=== PATIENT | male | born 2000 | race Caucasian/White ===

== ENCOUNTER → 2021-01-30 15:10 | Outpatient (CLI) | payer OTHER, SELFPAY ==
--- NOTE | ~2021-01-30 | MR_ITS ---
EXAMINATION: MR brain/brain stem wo/w con DATE: 01/30/2021 16:14 INDICATION: Sudden bilateral hearing loss. TECHNIQUE: Magnetic resonance imaging (MRI) of the brain and brainstem was performed without and with 13 mL MultiHance intravenous contrast. Sequences included sagittal and axial T1-weighted FSE, axial diffusion-weighted FS EPI, axial T2*-weighted GRE, axial T2-weighted FLAIR Propeller, and axial T2-we ighted Propeller. Postcontrast sequences included axial and coronal T1-weighted FSE. Apparent diffusi on coefficient (ADC) maps were created. COMPARISON: None. FINDINGS: There is no intracranial hemorrhage or acute infarction. There is a small area of leptomeni ngeal contrast enhancement in the right frontoparietal region. The ventricles are normal in size. The internal auditory canals and inner and middle ears are normal. The mastoid air cells are normal. Th ere is mild mucosal thickening in the ethmoid and left maxillary sinuses. The left maxillary sinus is smaller than the right. The orbits are normal. IMPRESSION: 1. Small area of leptomeningeal contrast enhancement in the right frontoparietal region. This finding may be seen with meningitis, subacute cortical infarct, and less likely metastatic disease, vasculit is, or Sturge-Reed syndrome. Reviewed, dictated and finalized at location A. [facility] IMPRESSION: 1. Small area of leptomeningeal contrast enhancement in the right frontoparieta l region. This finding may be seen with meningitis, subacute cortical infarct, and less likely metastatic disease, vasculitis, or Sturge-Reed syndrome.
[2021-01-30 15:56] LABS: Estimated Glomerular Filt Rate > 60
== END ==
DX: H91.23 Sudden idiopathic hearing loss, bilateral (principal)
CPT/HCPCS: 70553; A9577

== ENCOUNTER 2024-09-19 01:15 | Emergency (ER) | payer OTHER, SELFPAY ==
[2024-09-19 01:12] VITALS: BP 157/129; PULSE 115; RESP 16; TEMP 36.4; O2SAT 100
[2024-09-19 01:26] LABS: Hematocrit 45.4 % (42.0-52.0); Hemoglobin 16.3 g/dL (14.0-18.0); Immature Granulocyte Percent A 0.2 % (0-0.5); Lymphocytes Absolute Auto 2.37 K/mm3 (0.9-3.2); Mean Corpuscular HGB Conc 35.9 g/dl (32-36); Mean Corpuscular Hemoglobin 29.8 pg (26-34); Mean Corpuscular Volume 83.0 fl (80-100); Nucleated Red Blood Cells Absolute Auto 0.000 K/mm3 (0.0-0.012); Nucleated Red Blood Cells Perc 0.0 % (0.0-0.2); Platelet Count Result 305 k/mm3 (150-375); Red Blood Count 5.47 M/mm3 (4.6-6.20); White Blood Count 10.1 K/mm3 (4.5-10.0)
--- NOTE | 2024-09-19 01:26 | PC.NURSE ---
pt family placed in waiting room - family service area until involutary form is filled out.
[2024-09-19 01:35] LABS: Acetaminophen < 10 ug/mL (10-30); Salicylate < 1.0 mg/dL (2-20)
[2024-09-19 01:38] LABS: Alanine Aminotransferase 23 U/L (6-50); Albumin Level 5.4 g/dL (3.5-5.1); Alkaline Phosphatase 83 U/L (38-126); Anion Gap 24 mmol/L (4-12); Aspartate Amino Transferase 27 U/L (17-59); Bilirubin,Total 0.9 mg/dL (0.2-1.3); Blood Urea Nitrogen 11 mg/dL (9-20); Calcium 10.3 mg/dL (8.4-10.2); Carbon Dioxide 16 mmol/L (22-30); Chloride 100 mmol/L (98-107); Estimated CRCL calculation 105 ml/min; Estimated Glomerular Filt Rate > 60; Glucose 132 mg/dL (65-110); Potassium 3.4 mmol/L (3.4-5.0); Sodium 140 mmol/L (137-145); Total Protein 8.6 g/dL (6.3-8.2)
--- OUTSIDE RECORDS SUMMARY | 2024-09-19 01:50 | XMS_ITS | Clinical Summary ---
Author Organization [facility] Address [address] [place] [address] Care Team Providers Care Manager Medical Affairs Name Role Phone Karina Walsh MD Primary Care Provider [phone] Source Comments [facility] [employer],non-owned Affiliates and Associated Physician Practices is amultiple site organization consisting of ambulatory clinics and hospital sitesin [place], [place], [place] and [place]. This disclosure is being madepursuant to the Care Everywhere program and may not contain all information available regarding this patient. Last updated 17.[facility] Allergies No known active allergies Medications * Be aware that medications may not be up to date on this document. Alwaysverify current medications with the patient. No known medications Active Problems Problem Noted Date Diagnosed Date Closed nondisplaced fracture of distal phalanx of right great toe 05/02/2018 Closed displaced fracture of middle third of navicular bone of left wrist 08/30/2017 Pain associated with accessory navicular bone of foot 06/25/2014 Closed displaced fracture of fifth metatarsal bone of right foot 05/29/2013 Overview (12/20/2015): IMO Updt 12/20/2015 Resolved Problems Problem Noted Date Diagnosed Date Resolved Date Closed displaced fracture of fifth metatarsal bone of left foot, initial encounter 05/29/201301/2014 Overview (01/26/2015): Social History Tobacco Use Types Packs/Day Years Used Date Smoking Tobacco: Never Smokeless Tobacco: Never Alcohol Use Standard Drinks/Week Comments No 0 (1 standard drink = 0.6 oz pur e alcohol) Sex and Gender Information Value Date Recorded Sex Assigned at Not on file Legal Sex Male 5:41 AM 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 Gender Identity Not on file Sexual Orientation Not on file Last Filed Vital Signs Vital Sign Reading Time Taken Comments Blood Pressure - - Pulse - - Temperature - - Respiratory Rate - - Oxygen Saturation - - Inhaled Oxygen Concentration - - Weight 59.2 kg (130 lb 8.2 oz) 05/02/2018 1:13 P M 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 Height 172 cm (5' 7.72) 05/02/2018 1:13 PM 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 Body Mass Index 20.01 05/02/2018 1:13 PM 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 Plan of Treatment Health Maintenance Due Date Last Done Comments HIV SCREENING 2016 HPV VACCINE (1 - Male 3-dose series) 2016 MENINGOCOCCAL (Group B) VACC INE SHARED DECISION-MAKING (1 of 2 - Standard) 2017 HEPATITIS C SCREENING 08/04/2019 DTAP/TDAP/TD VACCINES (1 - Tdap) 2020 HEPATITIS B VACCINE (1 of 3 - 19+ 3-dose series) 2020 COVID-19 VACCINE (1 - 2023-2 5 season) 2023 DEPRESSION SCREENING 03/21/2024 INFLUENZA VACCINE (Season Ended) 2024 ZOSTER VACCINE (1 of 2) 08/09/2051 HIB VACCINE Aged Out No longer eligi ble based on patient's age to complete this topic MENINGOCOCCAL GROUPS A/C/Y/W VACCINE Aged Out No longer eligible b ased on patient's age to complete this topic PNEUMOCOCCAL VACCINE Aged Out No long er eligible based on patient's age to complete this topic Insurance [facility] Care Teams Manager Medical Affairs Relationship Specialty Start Date End Date Karina Walsh MD [address] [facility] [address] [address] [place] [address] PCP - General 02/09/10
--- OUTSIDE RECORDS SUMMARY | 2024-09-19 01:50 | XMS_ITS | Clinical Summary ---
Author Organization [facility] Address [address] [place] [id number] Care Team Providers Care Production Recorder Name Role Phone Unavailable Primary Care Provider Unavailabl e Social History Tobacco Use Types Packs/Day Years Used Date Smoking Tobacco: Never Assessed Sex and Gender Information Value Date Recorded Sex Assigned at Not on file Legal Sex Male 9:13 PM SCREENER PERFUMER Gender Identity Not on file Sexual Orientation Not on file Plan of Treatment Health Maintenance Due Date Last Done Comments Annual Physical 2004 HPV Vaccines (1 - Male 3-dos e series) 2016 Meningococcal B Vaccine (1 o f 2 - Standard) 2017 Hepatitis C 08/09/2019 DTaP, Tdap and Td Vaccines ( 1 - Tdap) 2020 Hepatitis B Vaccines (1 of 3 - 19+ 3-dose series) 2020 COVID-19 Vaccine ( - 2023-2 5 season) 2023 Meningococcal Vaccine Aged Out No angélica dana eligible based on patient's age to complete this topic Pneumococcal Vaccine: Pediat rics (0 to 5 Years) and At-Risk Patients (6 to 49 Years) Aged Out No longer eligible b ased on patient's age to complete this topic RSV Immunizations Under 20 Months Aged Out No longer eligible based on patient's age to complete this topic
[2024-09-19 01:52] LABS: Add Urine Microscopic? YES; Appearance Urine Clear (Clear); Glucose Urine UA Negative (Negative); Leukocyte Esterase Ur Negative LEU/UL (Negative); Need Manual Microscopic Reviewed; Nitrate Urine Negative (Negative); Non Pathogenic Casts 0-2; Specific Grav Ur 1.004 (1.001-1.035)
[2024-09-19 01:54] LABS: Cannabinoid Screen Urine Negative (Negative)
[2024-09-19 02:03] LABS: Influenza A QL RT-PCR Negative (Negative); Influenza B QL RT-PCR Negative (Negative); RSV RNA, RT-PCR Negative (Negative); SARS-CoV-2 RNA PCR Negative (Negative)
[2024-09-19 02:06] LABS: Thyroid Stimulating Hormone Reflex 7.430 uIU/mL (0.465-4.68)
--- NOTE | 2024-09-19 02:17 | PC.NURSE ---
pt continues to be verbally aggressive towards staff. Security at bedside.
--- NOTE | 2024-09-19 02:20 | ED_ITS ---
HPI - Psych General Chief Complaint: Psychiatric Symptoms <Gretta Edge MD - Last Filed: 09/19/24 07:26> Stated Complaint: SI/HI PER FAMILY REPORT, +ETOH, PT NOT ANSWERING ? <Gretta Edge MD - Last Filed: 09/19/24 07:26> Time Seen by Provider: 09/19/24 01:37 <Gretta Edge MD - Last Filed: 09/19/24 07:26> Source: patient and family (brother and sister) <Gretta Edge MD - Last Filed: 09/19/24 07:26> Mode of arrival: EMS <Gretta Edge MD - Last Filed: 09/19/24 07:26> Limitations: no limitations <Gretta Edge MD - Last Filed: 09/19/24 07:26> History of Present Illness HPI Narrative: Patient presents with report of suicidal ideation homicidal ideation according to the family. Siblings state that he has a history of angry outbursts ever since childhood but does not carry any mental health diagnoses, spent time in a mental health facility, or been prescribed any medications for this. He has been drinking alcohol. 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 The father states (via text) that the patient called him 27 times since 3pm and said that his father had went too far this time and there would be payback.Patient reportedly texted his friends josé migueltimmy and blocked their numbers. Had made threatening statements about harming his information technology officer. Family did fill out petition for involuntary paperwork given their concerns. This lists: Been is verbally abusive to everyone and has had frequent angry outburst before. At midnight he came inside and started yelling and cussing at my mom and told her to 'back the fuck away multiple times, said he had an appointment tomorrow to buy 4 guns & kill himself tomorrow. He said this to multiple people, multiple 'I have two options. #1 I'm fucked and going to care home, #2 I'm killing (?illegible) myself. Patient is agitated/frustrated. He denies any of this. Calling staff and EMS names. States he is sober. Denies any headache, chest pain, abdominal pain, shortness of breath. < Gretta Edge MD - Last Filed: 09/19/24 07:26> Related Data Allergies/Adverse Reactions: Allergies Allergy/AdvReac Type Severity Reaction Status Date / Time No Known Allergies Allergy Mild Verified 07/21/22 11:16 <Gretta Edge MD - Last Filed: 09/19/24 07:26> [facility] Social History Social History: Social History Smoking status: Unknown if ever smoked Alcohol intake: current Substance use type: other Lack of Transportation: No Lack of Food: Never True Current Housing: I Have Housing Concerned About Future Housing: No Difficulty Paying Gas/Electric Bills: No Difficulty Paying for Meds: No Currently Unemployed: No Education: High School Diploma/GED Difficulty w/ Childcare or Family Care: No Occupation/Education: occupation 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 HEAD: Normocephalic, atraumatic. EYES: Non injected, non icteric ENT: Nares clear, no rhinorrhea or epistaxis. Gross auditory acuity intact. NECK: Supple. No meningismus. CHEST: Speaking in full sentences. No respiratory distress. HEART: Tachycardic rate and rhythm. . ABDOMEN: Soft, nondistended. EXTREMITIES: Normal range of motion. No lower extremity edema. SKIN: Warm, dry, no rash. NEURO: No focal deficits. Alert and oriented. Answering questions. Following commands. Normal speech without aphasia or dysarthria. PSYCH: Appearance: Well kempt. Behavior: Agitated but Good eye contact Affect: angry. Mood is congruent with affect. Frequently talking, loudly. Does not appear to be responding to internal stimuli. <Gretta Edge MD - Last Filed: 09/19/24 07:26> Course Course Emergency Course: 1008: Patient medically clear for psychiatric evaluation. Ethanol is 33. 1734: Accepted to [facility] by Dr. Oconnell. <Ivan Thompson MD - Last Filed: 09/19/24 17:34> Vital Signs Vital signs: Vital Signs Temperature 97.6 F 09/19/24 01:12 Pulse Rate 115 H 09/19/24 01:12 Respiratory Rate 16 09/19/24 01:12 Blood Pressure 157/129 H 09/19/24 01:12 Pulse Oximetry 100 09/19/24 01:12 Oxygen Delivery Room Air 09/19/24 01:12 Temperature 97.6 F 09/19/24 14:26 Pulse Rate 82 09/19/24 14:26 Respiratory Rate 18 09/19/24 14:26 Blood Pressure 137/99 H 09/19/24 14:26 Pulse Oximetry 100 09/19/24 14:26 Oxygen Delivery Room Air 09/19/24 01:12 <Gretta Edge MD - Last Filed: 09/19/24 07:26> Vital Signs Temperature 97.6 F 09/19/24 01:12 Pulse Rate 115 H 09/19/24 01:12 Respiratory Rate 16 09/19/24 01:12 Blood Pressure 157/129 H 09/19/24 01:12 Pulse Oximetry 100 09/19/24 01:12 Oxygen Delivery Room Air 09/19/24 01:12 Temperature 97.6 F 09/19/24 14:26 Pulse Rate 82 09/19/24 14:26 Respiratory Rate 18 09/19/24 14:26 Blood Pressure 137/99 H 09/19/24 14:26 Pulse Oximetry 100 09/19/24 14:26 Oxygen Delivery Room Air 09/19/24 01:12 <Ivan Thompson MD - Last Filed: 09/19/24 17:34> MDM - Psych MDM Narrative Medical decision making narrative: Patient presents after involuntary petition by his siblings. In the emergency department he is afebrile with vital signs notable for tachycardia and hypertension. Social determinants of health affecting condition: Recent incarceration Patient has made statements and demonstrated behaviors to his siblings that he is a threat to himself and others. They have significant concern for suicidal statements and threats to others including their father who removed weapons from patient's shop given he was being released from prison today. Believe all weapons were found and removed but not certain. They report that he had demonstrated angry outbursts and done several concerning things even before he was drinking alcohol. Ethanol level 243. Repeat is ordered. There is significant enough concern that family filled out involuntary paperwork as above. I filled out my section. Patient agitated overnight but did not require meds. He is frequently calling staff and hospital personnel including security names. He asks what it would take to put him back in prison. Asking if he assaulted someone if that would speed up the process. At times stating he won't allow another lab draw and at other times requesting repeat alcohol lab draw be performed immediately since I'm sober. TSH abnormal; T4-T3 ordered. They are 1.51 and 1.0 respectively per review of lab section of EMR. Subclinical hypothyroidism. Patient signed out to oncoming ED physician at shift change. Pending repeat alcohol and then evaluation by psych/crisis after determination of being medically cleared but I am recommending placement as per involuntary documentation. <Gretta Edge MD - Last Filed: 09/19/24 07:26> Differential Diagnosis Differential diagnosis: Likely acute psychosis, chronic schizophrenia, suicidal ideation, bipolar disorder, depression, drug-induced psychotic disorder, acute anxiety and other (alcohol intoxicatoin) <Gretta Edge MD - Last Filed: 09/19/24 07:26> Lab Data Attestation: I reviewed the patient's lab results. <Gretta Edge MD - Last Filed: 09/19/24 07:26> Result diagrams: 09/19/24 01:21 09/19/24 01:21 <Gretta Edge MD - Last Filed: 09/19/24 07:26> Labs: Lab Results 09/19/24 09/19/24 09/19/24 Range/Units 01:21 01:25 09:07 WBC 10.1 H (4.5-10.0) K/mm3 RBC 5.47 (4.6-6.20) M/mm3 Hgb 16.3 (14.0-18.0) g/dL Hct 45.4 (42.0-52.0) % MCV 83.0 (80-100) fl MCH 29.8 (26-34) pg MCHC 35.9 (32-36) g/dl RDW 11.6 (11.5-14.5) % Plt Count 305 (150-375) k/mm3 MPV 10.1 (7.4-10.4) fl Immature Gran % (Auto) 0.2 (0-0.5) % Neut % (Auto) 66.6 (45.5-73.1) % Lymph % (Auto) 23.5 (18.3-44.2) % [place] % (Auto) 8.6 H (2.6-8.5) % Eos % (Auto) 0.5 (0-4.4) % Baso % (Auto) 0.6 (0.2-1.2) % Lymph # (Auto) 2.37 (0.9-3.2) K/mm3 [place] # (Auto) 0.9 H (0.1-0.6) K/mm3 Eos # (Auto) 0.1 (0-0.3) K/mm3 Baso # (Auto) 0.1 (0.0-0.1) K/mm3 Abs Immat Gran (auto) 0.02 (0.00-0.031) K/mm3 Absolute Neuts (auto) 6.7 (1.3-6.7) K/mm3 Absolute Nucleated RBC 0.000 (0.0-0.012) K/mm3 Nucleated RBC % 0.0 (0.0-0.2) % Sodium 140 (137-145) mmol/L Potassium 3.4 (3.4-5.0) mmol/L Chloride 100 (98-107) mmol/L Carbon Dioxide 16 L (22-30) mmol/L Anion Gap 24 H (4-12) mmol/L BUN 11 (9-20) mg/dL Creatinine 0.96 (0.7-1.3) mg/dL Estim Creat Clear Calc 105 ml/min Estimated GFR > 60 (59 - ) Glucose 132 H (65-110) mg/dL Calcium 10.3 H (8.4-10.2) mg/dL Total Bilirubin 0.9 (0.2-1.3) mg/dL AST 27 (17-59) U/L ALT 23 (6-50) U/L Alkaline Phosphatase 83 (38-126) U/L Total Protein 8.6 H (6.3-8.2) g/dL Albumin 5.4 H (3.5-5.1) g/dL TSH (Reflex) 7.430 H (0.465-4.68) uIU/mL Free T4 1.51 (0.78-2.19) ng/dL Total T3 1.00 (0.82-1.58) NG/ML Urine Color Yellow (Yellow) Urine Appearance Clear (Clear) Urine pH 7.0 (5.0-9.0) Ur Specific [place] 1.004 (1.001-1.035) Urine Protein 3+ H (Negative) mg/dL Urine Glucose (UA) Negative (Negative) mg/dL Urine Ketones Negative (Negative) mg/dL Ur Blood (Man) Trace (Negative) Urine Nitrate Negative (Negative) Urine Bilirubin Negative (Negative) Urine Urobilinogen 0.2 (<2.0) mg/dL Add Ur Microanalysis Reviewed Leukocyte Esterase Rfl Negative (Negative) PATRICK/UL Urine RBC 0-2 (0-2) /hpf Urine WBC 0-5 (0-3) /hpf Ur Squamous Epith Cells None seen (Few) /hpf Urine Bacteria None seen /hpf Urine Casts 0-2 Salicylates < 1.0 L (2-20) mg/dL Urine Opiates Screen Negative (Negative) Urine Methadone Screen Negative (Negative) Acetaminophen < 10 L (10-30) ug/mL Ur Barbiturates Screen Negative (Negative) Ur Phencyclidine Scrn Negative (Negative) Ur Amphetamine Screen Negative (Negative) U Benzodiazepines Scrn Negative (Negative) Urine Cocaine Screen Negative (Negative) U Cannabinoids Screen Negative (Negative) Ethyl Alcohol 243 33 (<10) mg/dL Influenza A (RT-PCR) Negative (Negative) Influenza B (RT-PCR) Negative (Negative) RSV (RT-PCR) Negative (Negative) SARS-CoV-2 RNA (RT-PCR) Negative (Negative) <Gretta Edge MD - Last Filed: 09/19/24 07:26> Lab Results 09/19/24 09/19/24 09/19/24 Range/Units 01:21 01:25 09:07 WBC 10.1 H (4.5-10.0) K/mm3 RBC 5.47 (4.6-6.20) M/mm3 Hgb 16.3 (14.0-18.0) g/dL Hct 45.4 (42.0-52.0) % MCV 83.0 (80-100) fl MCH 29.8 (26-34) pg MCHC 35.9 (32-36) g/dl RDW 11.6 (11.5-14.5) % Plt Count 305 (150-375) k/mm3 MPV 10.1 (7.4-10.4) fl Immature Gran % (Auto) 0.2 (0-0.5) % Neut % (Auto) 66.6 (45.5-73.1) % Lymph % (Auto) 23.5 (18.3-44.2) % [place] % (Auto) 8.6 H (2.6-8.5) % Eos % (Auto) 0.5 (0-4.4) % Baso % (Auto) 0.6 (0.2-1.2) % Lymph # (Auto) 2.37 (0.9-3.2) K/mm3 [place] # (Auto) 0.9 H (0.1-0.6) K/mm3 Eos # (Auto) 0.1 (0-0.3) K/mm3 Baso # (Auto) 0.1 (0.0-0.1) K/mm3 Abs Immat Gran (auto) 0.02 (0.00-0.031) K/mm3 Absolute Neuts (auto) 6.7 (1.3-6.7) K/mm3 Absolute Nucleated RBC 0.000 (0.0-0.012) K/mm3 Nucleated RBC % 0.0 (0.0-0.2) % Sodium 140 (137-145) mmol/L Potassium 3.4 (3.4-5.0) mmol/L Chloride 100 (98-107) mmol/L Carbon Dioxide 16 L (22-30) mmol/L Anion Gap 24 H (4-12) mmol/L BUN 11 (9-20) mg/dL Creatinine 0.96 (0.7-1.3) mg/dL Estim Creat Clear Calc 105 ml/min Estimated GFR > 60 (59 - ) Glucose 132 H (65-110) mg/dL Calcium 10.3 H (8.4-10.2) mg/dL Total Bilirubin 0.9 (0.2-1.3) mg/dL AST 27 (17-59) U/L ALT 23 (6-50) U/L Alkaline Phosphatase 83 (38-126) U/L Total Protein 8.6 H (6.3-8.2) g/dL Albumin 5.4 H (3.5-5.1) g/dL TSH (Reflex) 7.430 H (0.465-4.68) uIU/mL Free T4 1.51 (0.78-2.19) ng/dL Total T3 1.00 (0.82-1.58) NG/ML Urine Color Yellow (Yellow) Urine Appearance Clear (Clear) Urine pH 7.0 (5.0-9.0) Ur Specific [place] 1.004 (1.001-1.035) Urine Protein 3+ H (Negative) mg/dL Urine Glucose (UA) Negative (Negative) mg/dL Urine Ketones Negative (Negative) mg/dL Ur Blood (Man) Trace (Negative) Urine Nitrate Negative (Negative) Urine Bilirubin Negative (Negative) Urine Urobilinogen 0.2 (<2.0) mg/dL Add Ur Microanalysis Reviewed Leukocyte Esterase Rfl Negative (Negative) PATRICK/UL Urine RBC 0-2 (0-2) /hpf Urine WBC 0-5 (0-3) /hpf Ur Squamous Epith Cells None seen (Few) /hpf Urine Bacteria None seen /hpf Urine Casts 0-2 Salicylates < 1.0 L (2-20) mg/dL Urine Opiates Screen Negative (Negative) Urine Methadone Screen Negative (Negative) Acetaminophen < 10 L (10-30) ug/mL Ur Barbiturates Screen Negative (Negative) Ur Phencyclidine Scrn Negative (Negative) Ur Amphetamine Screen Negative (Negative) U Benzodiazepines Scrn Negative (Negative) Urine Cocaine Screen Negative (Negative) U Cannabinoids Screen Negative (Negative) Ethyl Alcohol 243 33 (<10) mg/dL Influenza A (RT-PCR) Negative (Negative) Influenza B (RT-PCR) Negative (Negative) RSV (RT-PCR) Negative (Negative) SARS-CoV-2 RNA (RT-PCR) Negative (Negative) <Ivan Thompson MD - Last Filed: 09/19/24 17:34> Discharge Plan Discharge Clinical Impression: Acute alcohol intoxication, Suicidal ideation, Homicidal ideation, Subclinical hypothyroidism <Gretta Edge MD - Last Filed: 09/19/24 07:26> Patient Disposition: Psychiatric Hosp <Gretta Edge MD - Last Filed: 09/19/24 07:26> Condition: Serious <Gretta Edge MD - Last Filed: 09/19/24 07:26> Patient Language: Togolese <Gretta Edge MD - Last Filed: 09/19/24 07:26> Follow-up/Referrals: PHYSICIAN NOT ON STAFF,NONSTAFF [Primary Care Provider] - <Gretta Edge MD - Last Filed: 09/19/24 07:26>
[2024-09-19] MEDS: CALCIUM CARBONATE (TUMS) 500 MG (200 MG ELEMENTAL) PO (02:54)
[2024-09-19 03:26] LABS: Free T4 Free Thyroxine Reflex 1.51 ng/dL (0.78-2.19)
[2024-09-19 04:10] LABS: Total Triiodothyronine (T3) 1.00 NG/ML (0.82-1.58)
--- NOTE | 2024-09-19 09:10 | PC.NURSE ---
Meal tray ordered for pt.
--- NOTE | 2024-09-19 11:07 | PC.NURSE ---
Bedside report given by Montse RN to this RN. Pt. verbalized frustration about being here. All questions answered by BRAIN Willard about plan of care. Pt. alert, A&Ox4, breathing equal and unlabored.
--- NOTE | 2024-09-19 11:12 | PC.NURSE ---
Lunch tray ordered for pt.
--- NOTE | 2024-09-19 11:16 | PC.NURSE ---
called dietary to order lunch tray for patient.
[2024-09-19 11:50] VITALS: BP 176/81; PULSE 89; RESP 20; TEMP 36.6; O2SAT 100
--- NOTE | 2024-09-19 11:50 | PC.NURSE ---
Crisis team at bedside talking with pt.
--- NOTE | 2024-09-19 12:13 | PC.NURSE ---
Per crisis staff, pt. will be placed admitted as involuntary, inpatient. Pt. aware of plan. Pt. pacing in room. Pt. aware of plan and verbalized understanding. Security remains outside of room d/t pt. previous aggression and current anger with plan.
--- NOTE | 2024-09-19 12:40 | PC.NURSE ---
Lunch tray delivered to pt. room by this RN. Pt. states I don't want it. I don't eat breakfast or lunch.
--- NOTE | 2024-09-19 13:00 | PC.NURSE ---
Pt. continues to deny SI/HI. Speech clear. Pt. is calm at this time. Pt. is A&Ox4. Pt. is requesting to have his cell phone back. This RN spoke with DIMA Doran and cell phone given back to pt.
[2024-09-19 14:26] VITALS: BP 137/99; PULSE 82; RESP 18; TEMP 36.4; O2SAT 100
--- NOTE | 2024-09-19 14:50 | PC.NURSE ---
Per pt. approval, Mom brought to bedside.
--- NOTE | 2024-09-19 15:04 | PC.NURSE ---
Crisis called and this RN spoke with Edie. Update provided that pt. has been accepted at [facility].
[2024-09-19 19:30] VITALS: BP 151/101; PULSE 86; RESP 18; TEMP 36.7; O2SAT 98
--- NOTE | 2024-09-19 19:57 | PC.NURSE ---
Report given to [facility]. All questions answered. Pt. calm and cooperative at time of transfer. Original involuntary paperwork sent with ptDerek Gardiner notified via phone call at this time that pt. is en route.
== END 2024-09-19 19:59 ==
PROVIDERS: Student in an Organized Health Care Education/Training Program; Emergency Provider Emergency Medicine
DX: F10.129 Alcohol abuse with intoxication, unspecified (principal); Y90.8 Blood alcohol level of 240 mg/100 ml or more; R45.851 Suicidal ideations; R45.850 Homicidal ideations; E03.8 Other specified hypothyroidism; Z11.52 Encounter for screening for COVID-19
CPT/HCPCS: 36415; 80053; 80143; 80179; 80307; 81001; 82077; 84439; 84443; 84480; 85025; 87637; 99285; A9270